=== PATIENT | female | born 1935 | race Caucasian/White ===

== ENCOUNTER 2021-07-22 16:12 | Inpatient (IN) ==
[2021-07-22] MEDS ORDERED: D5% in Water 1,000 ML IVC PRN (18:23)
[2021-07-22] MEDS ORDERED: Acetaminophen 325 MG TABLET PO PRN (22:40)
[2021-07-22] MEDS ORDERED: Melatonin 3 MG TABLET PO PRN (22:41)
[2021-07-22] MEDS ORDERED: Dextrose 4 GM Chewable Tablets PO PRN ×2 (22:41)
[2021-07-22] MEDS ORDERED: *HR* Dextrose 50 % in Water (Syg) 50 ML SYRINGE IVP PRN (22:41)
[2021-07-22] MEDS ORDERED: Ondansetron ODT 4 MG TAB.RAPDIS SL PRN (22:42)
[2021-07-22] MEDS: Insulin LISPRO 300 UNITS/3 ML VIAL SUBQ SCH (22:47)
[2021-07-23] MEDS: Insulin DETEMIR 100 UNIT/ML per UNIT SUBQ SCH ×2 (05:25→09:40)
[2021-07-23 07:04] LABS: Basophils % 0.5 %; Eosinophils # 0.4 K/mcL (0.0-0.6); Eosinophils % 5.2 %; Hematocrit 47.6 % (35.3-44.9); Hemoglobin 15.1 g/dL (11.5-15.4); Immature Granulocytes % 0.3 % (0-4); Lymphocytes % 25.4 %; Mean Corpuscular HGB Conc 31.7 g/dL (31.6-35.5); Mean Corpuscular Hemoglobin 27.9 pg (28.0-33.3); Mean Corpuscular Volume 87.8 fL (83.0-100.0); Mean Platelet Volume 10.8 fL (9.4-12.4); Monocytes # 0.7 K/mcL (0.0-1.3); Monocytes % 8.6 %; Neutrophils # 4.6 K/mcL (1.6-8.9); Platelet Count 244 K/mcL (140-400); Red Blood Count 5.42 M/mcL (3.82-4.97); Red Cell Distribution Width 15.1 % (11.5-14.5); White Blood Count 7.7 K/mcL (4.3-11.1)
[2021-07-23] MEDS: Insulin LISPRO 300 UNITS/3 ML VIAL SUBQ SCH ×4 (07:12→20:40)
[2021-07-23 07:29] LABS: BUN/Creatinine Ratio 23 (6-26); Blood Urea Nitrogen 24 mg/dL (8-23); Calcium 8.9 mg/dL (8.6-10.3); Carbon Dioxide 27 mEq/L (23-29); Chloride 104 mEq/L (98-107); Glucose 110 mg/dL (70-105); Osmolality,Calculated 291 (280-300); Sodium 138 mEq/L (136-145); eGFR For African Americans > 60 (> 60); eGFR For Non-African Americans 50 (> 60)
[2021-07-23] MEDS: Aspirin Enteric Coated 81 MG Tablet PO SCH (08:29)
[2021-07-23] MEDS: Multivit/Ca/Min/Fe/FA 1 TAB TABLET PO SCH (08:29)
[2021-07-23] MEDS: Insulin DETEMIR 100 UNIT/ML X5UNITS SUBQ SCH ×2 (09:31→20:40)
[2021-07-23] MEDS ORDERED: hydrALAZINE 25 MG TABLET PO PRN ×2 (14:33→14:50)
[2021-07-23] MEDS: Sennosides/Docusate Sodium TABLET PO SCH (20:47)
[2021-07-24] MEDS: Aspirin Enteric Coated 81 MG Tablet PO SCH (08:05)
[2021-07-24] MEDS: Sennosides/Docusate Sodium TABLET PO SCH ×2 (08:05→21:01)
[2021-07-24] MEDS: Insulin LISPRO 300 UNITS/3 ML VIAL SUBQ SCH ×4 (08:06→21:02)
[2021-07-24] MEDS: Multivit/Ca/Min/Fe/FA 1 TAB TABLET PO SCH (08:06)
[2021-07-25] MEDS ORDERED: Insulin DETEMIR 100 UNIT/ML X5UNITS SUBQ SCH (09:00)
[2021-07-25] MEDS: Insulin LISPRO 300 UNITS/3 ML VIAL SUBQ SCH ×4 (09:41→21:37)
[2021-07-25] MEDS: Multivit/Ca/Min/Fe/FA 1 TAB TABLET PO SCH (09:42)
[2021-07-25] MEDS: Sennosides/Docusate Sodium TABLET PO SCH ×2 (09:42→21:36)
[2021-07-25] MEDS: Aspirin Enteric Coated 81 MG Tablet PO SCH (09:42)
[2021-07-25] MEDS ORDERED: Insulin DETEMIR 100 UNIT/ML per UNIT SUBQ ONE (21:00)
[2021-07-26] MEDS: Insulin LISPRO 300 UNITS/3 ML VIAL SUBQ SCH ×4 (07:54→20:10)
[2021-07-26] MEDS: Sennosides/Docusate Sodium TABLET PO SCH ×2 (09:32→20:06)
[2021-07-26] MEDS: Insulin DETEMIR 100 UNIT/ML X5UNITS SUBQ SCH (09:32)
[2021-07-26] MEDS: Multivit/Ca/Min/Fe/FA 1 TAB TABLET PO SCH (09:32)
[2021-07-26] MEDS: Aspirin Enteric Coated 81 MG Tablet PO SCH (09:32)
[2021-07-26] MEDS ORDERED: Insulin DETEMIR 100 UNIT/ML X5UNITS SUBQ SCH (21:00)
[2021-07-27] MEDS: Insulin LISPRO 300 UNITS/3 ML VIAL SUBQ SCH ×4 (07:45→20:25)
[2021-07-27] MEDS: Aspirin Enteric Coated 81 MG Tablet PO SCH (09:04)
[2021-07-27] MEDS: Multivit/Ca/Min/Fe/FA 1 TAB TABLET PO SCH (09:04)
[2021-07-27] MEDS: Sennosides/Docusate Sodium TABLET PO SCH ×2 (09:04→20:30)
[2021-07-27] MEDS: Insulin DETEMIR 100 UNIT/ML X5UNITS SUBQ SCH (09:08)
[2021-07-28] MEDS: Insulin LISPRO 300 UNITS/3 ML VIAL SUBQ SCH ×4 (08:24→21:12)
[2021-07-28] MEDS: Aspirin Enteric Coated 81 MG Tablet PO SCH (09:42)
[2021-07-28] MEDS: modafiniL 100 MG TABLET PO SCH (09:42)
[2021-07-28] MEDS: Multivit/Ca/Min/Fe/FA 1 TAB TABLET PO SCH (09:42)
[2021-07-28] MEDS: Sennosides/Docusate Sodium TABLET PO SCH ×2 (09:42→21:19)
[2021-07-28] MEDS: Insulin DETEMIR 100 UNIT/ML X5UNITS SUBQ SCH (09:43)
[2021-07-29] MEDS: Insulin LISPRO 300 UNITS/3 ML VIAL SUBQ SCH ×4 (07:47→20:52)
[2021-07-29] MEDS: Aspirin Enteric Coated 81 MG Tablet PO SCH (08:29)
[2021-07-29] MEDS: Multivit/Ca/Min/Fe/FA 1 TAB TABLET PO SCH (08:30)
[2021-07-29] MEDS: Sennosides/Docusate Sodium TABLET PO SCH ×2 (08:30→20:52)
[2021-07-29] MEDS: modafiniL 100 MG TABLET PO SCH (08:30)
[2021-07-29] MEDS: Insulin DETEMIR 100 UNIT/ML X5UNITS SUBQ SCH (08:41)
[2021-07-30] MEDS: Insulin LISPRO 300 UNITS/3 ML VIAL SUBQ SCH ×4 (08:02→21:06)
[2021-07-30] MEDS: Aspirin Enteric Coated 81 MG Tablet PO SCH (09:32)
[2021-07-30] MEDS: modafiniL 100 MG TABLET PO SCH (09:32)
[2021-07-30] MEDS: Insulin DETEMIR 100 UNIT/ML X5UNITS SUBQ SCH (09:33)
[2021-07-30] MEDS: Sennosides/Docusate Sodium TABLET PO SCH ×2 (09:33→20:50)
[2021-07-30] MEDS: Multivit/Ca/Min/Fe/FA 1 TAB TABLET PO SCH (09:33)
[2021-07-31] MEDS: Insulin LISPRO 300 UNITS/3 ML VIAL SUBQ SCH ×4 (07:46→20:23)
[2021-07-31] MEDS: modafiniL 100 MG TABLET PO SCH (09:34)
[2021-07-31] MEDS: Insulin DETEMIR 100 UNIT/ML X5UNITS SUBQ SCH (09:34)
[2021-07-31] MEDS: Aspirin Enteric Coated 81 MG Tablet PO SCH (09:34)
[2021-07-31] MEDS: Multivit/Ca/Min/Fe/FA 1 TAB TABLET PO SCH (09:34)
[2021-07-31] MEDS: Sennosides/Docusate Sodium TABLET PO SCH ×2 (09:34→21:41)
[2021-08-01 07:55] VITALS: O2SAT 95
[2021-08-01] MEDS: Insulin LISPRO 300 UNITS/3 ML VIAL SUBQ SCH ×4 (08:28→22:13)
[2021-08-01] MEDS: Aspirin Enteric Coated 81 MG Tablet PO SCH (08:28)
[2021-08-01] MEDS: Sennosides/Docusate Sodium TABLET PO SCH ×2 (08:28→22:42)
[2021-08-01] MEDS: Multivit/Ca/Min/Fe/FA 1 TAB TABLET PO SCH (08:28)
[2021-08-01] MEDS: modafiniL 100 MG TABLET PO SCH (08:28)
[2021-08-01] MEDS: Insulin DETEMIR 100 UNIT/ML X5UNITS SUBQ SCH (08:28)
[2021-08-01 19:06] VITALS: RESP 17
[2021-08-02 07:45] VITALS: BP 135/63; PULSE 61; TEMP 97.7
[2021-08-02] MEDS: Insulin LISPRO 300 UNITS/3 ML VIAL SUBQ SCH ×2 (07:53→11:27)
[2021-08-02] MEDS: Multivit/Ca/Min/Fe/FA 1 TAB TABLET PO SCH (08:03)
[2021-08-02] MEDS: Aspirin Enteric Coated 81 MG Tablet PO SCH (08:03)
[2021-08-02] MEDS: modafiniL 100 MG TABLET PO SCH (08:03)
[2021-08-02] MEDS: Sennosides/Docusate Sodium TABLET PO SCH (08:03)
[2021-08-02] MEDS: Insulin DETEMIR 100 UNIT/ML X5UNITS SUBQ SCH (09:48)
[2021-08-02 16:27] LABS: Influenza A PCR Negative (Negative); Influenza B PCR Negative (Negative); Resp. Syncytial Virus PCR Negative (Negative); SARS-CoV-2 by PCR (In House) Negative (Negative)
== END 2021-08-02 16:55 | DRG 66 ==
LOC: INPPIK 22:31
PROVIDERS: ADMIT Internal Medicine; ATTEND Internal Medicine